=== PATIENT | male | born 1965 ===

== ENCOUNTER 2018-04-09 14:39 | Outpatient (CLI) | payer OTHER | END 2018-04-09 14:56 | disposition home or self-care (01) | LOC: OFIC 805 14:39 | DX: R22.1 Localized swelling, mass and lump, neck (principal) ==

== ENCOUNTER 2018-04-16 10:23 | Outpatient (CLI) | payer OTHER ==
[~2018-04-16] VITALS: Ht 152.4 cm; Wt 93.4 kg
== END 2018-04-16 10:40 | disposition home or self-care (01) ==
LOC: OFIC 805 10:23
DX: R22.1 Localized swelling, mass and lump, neck (principal)

== ENCOUNTER 2018-05-11 06:22 | Day surgery (SDC) | payer OTHER ==
[~2018-05-11 06:22] MED LIST: SIMVASTATIN20 MG; TENORMIN50 M1
== END 2018-05-11 11:50 | disposition home or self-care (01) ==
LOC: CIR.AMB 06:22
DX: D17.0 Benign lipomatous neoplasm of skin and subcutaneous tissue of head, face and neck (principal)

== ENCOUNTER 2018-05-14 11:21 | Outpatient (CLI) | payer OTHER ==
[~2018-05-14] VITALS: Ht 152.4 cm; Wt 92.1 kg
== END 2018-05-14 11:40 | disposition home or self-care (01) ==
LOC: OFIC 805 11:21
DX: R22.1 Localized swelling, mass and lump, neck (principal)